=== PATIENT | male | born 1990 | race Caucasian/White ===

== ENCOUNTER 2024-08-07 12:13 | Emergency (ER) | payer OTHER ==
[~2024-08-07] VITALS: Ht 167.6 cm; Wt 82.0 kg
[2024-08-07 12:15] VITALS: O2SAT 98
[2024-08-07 12:22] VITALS: BP 125/65; PULSE 74; RESP 18; TEMP 36.8; O2SAT 98
[2024-08-07] MEDS ORDERED: KETO10TA2 MT (17:30)
[2024-08-07] MEDS ORDERED: TRIA60LO17 TP (17:30)
[2024-08-07] MEDS ORDERED: SULF1TAB48 MT (17:30)
== END 2024-08-07 17:40 | disposition home or self-care (01) ==
LOC: ER 12:13
DX: L20.9 Atopic dermatitis, unspecified (principal); Z79.899 Other long term (current) drug therapy
CPT/HCPCS: 99283